=== PATIENT | male | born 2000 | race Caucasian/White ===

== ENCOUNTER 2021-07-28 20:03 | Emergency (ER) | payer OTHER ==
--- NOTE | 2021-07-28 20:36 | ED Physician Documentation ---
History of Present Illness - Stated complaint Stated Complaint: HEADACHE - Chief complaint Chief Complaint: Neuro - Additonal information Additional information: 21-year-old male presents emergency department for evaluation of sudden onset he adache. He was having intercourse this evening when he orgasmed. At the moment of orgasm he developed a sudden posterior occipital headache. He describes it is the worst headache of his life and was 10/10. He did briefly have tunnel vision though no loss of vision. He denies any neck pain nausea or vomiting. No recent fevers. No history of headaches or similar in the past. He does not have a family history of aneurysmal brain defects. Without any treatment the headache has started to subside and is no 5/10.. He presents with no focal deficits. Patient denies any history of injection drug use, history of amphetamine or methamphetamine use. Review of Systems Constitutional: denies: Fever, Chills Eyes: denies: Loss of vision Ears: reports: Reviewed and negative Throat: reports: Reviewed and negative Cardiac: reports: Reviewed and negative Respiratory: reports: Reviewed and negative GI: reports: Reviewed and negative : reports: Reviewed and negative Skin: reports: Reviewed and negative Musculoskeletal: reports: Reviewed and negative Neurologic: reports: Headache. denies: Focal weakness, Numbness, Difficulty speaking, Near syncope, Syncope, Seizure, Confused, Head injury, LOC PD PAST MEDICAL HISTORY - Past Medical History Past Medical History: No - Past Surgical History Past Surgical History: No - Present Medications Home Medications: Ambulatory Orders Medication Instructions Recorded Confirmed No Known Home Medications 07/28/21 07/28/21 - Allergies Allergies/Adverse Reactions: Allergies Allergy/AdvReac Type Severity Reaction Status Date / Time No Known Drug Allergies Allergy Verified 07/28/21 20:07 - Social History Does the pt smoke?: No Smoking Status: Never smoker Does the pt drink ETOH?: No Does the pt have substance abuse?: No PD ED PE NORMAL - General General: Alert and oriented X 3, No acute distress, Well developed/nourished - HEENT HEENT: Atraumatic, Ears normal, Moist mucous membranes, Pharynx benign - Neck Neck: Supple, no meningeal sign, No adenopathy, No JVD - Cardiac Cardiac: RRR, No murmur, No gallop - Respiratory Respiratory: No respiratory distress, Clear bilaterally - Abdomen Abdomen: Normal bowel sounds, Soft, Non tender - Back Back: No CVA TTP, No spinal TTP - Derm Derm: Normal color, Warm and dry, No rash - Extremities Extremities: No deformity, No tenderness to palpate, Normal ROM s pain - Neuro Neuro: Alert and oriented X 3, executive administrative asst 2-12 intact, No motor deficit, No sensory deficit, Normal speech, Other (Normal gait, normal finger-nose normal rapid alternating movements) Eye Opening: Spontaneous Motor: Obeys Commands Verbal: Oriented GCS Score: 15 - Psych Psych: Normal mood, Normal affect Results - Vitals Vitals: Vital Signs - 24 hr 07/28/21 20:07 Temperature 36.5 C Heart Rate 100 Respiratory 16 Rate Blood Pressure 142/56 H O2 Saturation 99 Oxygen O2 Source Room air - Labs Labs: Laboratory Tests 07/28/21 07/28/21 20:35 20:35 PT 12.8 H INR 1.2 Sodium 139 Potassium 4.0 Chloride 101 Carbon Dioxide 27 Anion Gap 11.0 BUN 21 H Creatinine 1.1 Estimated GFR (MDRD) 85 L Glucose 94 Calcium 9.8 Total Bilirubin 0.6 AST 15 ALT 22 Alkaline Phosphatase 55 Total Protein 8.0 Albumin 4.9 Globulin 3.1 Albumin/Globulin Ratio 1.6 Lipase 39 - Rads (name of study) CT head Radiology: Final report received (Normal CT of the brain. No hemorrhage or mass-effect) Procedures - Lumbar Puncture Position: Laying left side PD MEDICAL DECISION MAKING - ED course Complexity details: reviewed results, re-evaluated patient, considered differential, d/w patient ED course: 21-year-old otherwise healthy male presents the emergency department for evaluation of a sudden onset thunderclap worst of headache life. The headache occurred at the moment that he orgasmed during intercourse. No history of similar in the past. He presents with no focal neuro or cerebellar deficits. Screening electrolytes and PT/INR were unremarkable. A CT of the head performed within 2 hours of onset of headache was negative. However given the history I am still concerned that this may represent a subarachnoid hemorrhage. I did attempt lumbar puncture at the bedside 3 times without success therefore I have called our anesthesia colleagues to complete the LP. Patient will be signed out to my nighttime colleague Dr. Fields. If the resultant CSF is negative for findings of blood or xanthochromia he is stable for discharge home and [place] [facility] [place] Departure - Departure Clinical Impression: Headache Qualifiers: Headache type: unspecified Headache chronicity pattern: acute headache Intracta bility: not intractable Qualified Code(s): R51.9 - Headache, unspecified Condition: Stable Record reviewed to determine appropriate education?: Yes Comments: Carter you are seen today in the emergency department for evaluation of a sudden onset headache that occurred at the moment of orgasm during intercourse. The CT of your head was normal. Your screening labs were normal. However your history was concerning for a condition called subarachnoid hemorrhage. Therefore a lumbar puncture was completed at the bedside. Reassuringly this did not show any secondary findings of subarachnoid hemorrhage such as blood in the LP. Is okay for you to take Tylenol and ibuprofen at home for headache and discomfort. If at any point you find that your headache worsens, you have worsening symptoms, fevers neck pain or uncontrolled vomiting then you should return immediately to the ER for a second evaluation.
[2021-07-28 20:51] LABS: INR 1.2 (0.8-1.2); PT - PROTHROMBIN TIME 12.8 secs (9.9-12.6)
[2021-07-28 20:54] LABS: ALBUMIN 4.9 g/dL (3.2-5.5); ALBUMIN/GLOBULIN RATIO 1.6 (1.0-2.2); BILIRUBIN,TOTAL 0.6 mg/dL (0.2-1.0); CALCIUM 9.8 mg/dL (8.5-10.3); CREATININE 1.1 mg/dL (0.6-1.2)
--- NOTE | 2021-07-28 21:15 | CT Report ---
PROCEDURE: CT brain without contrast INDICATIONS: Headache TECHNIQUE: Noncontrast 4.5 mm thick angled axial sections acquired from the foramen magnum to the vertex. For r adiation dose reduction, the following was used: automated exposure control, adjustment of mA and/or kV according to patient size. COMPARISON: None. FINDINGS: Image quality: Excellent. CSF spaces: Basal cisterns are patent. No extra-axial fluid collections. Ventricles are normal in size and shape. Brain: No midline shift. No intracranial masses or hemorrhage. Stone-white matter interface is norm al. Skull and face: Calvarium and visualized facial bones are intact, without suspicious lesions. Sinuses: Visualized sinuses and mastoids are clear. IMPRESSION: Normal CT brain. No hemorrhage or mass effect. Reviewed by: Dwight Briseno MD on 07/28/2021 8:14 PM [email or web address] Approved by: Dwight Briseno MD on 07/28/2021 8:14 PM WIL[facility] Station ID: [id number]
[2021-07-28] MEDS ORDERED: HYDROmorphone 1 MG/ML CARPUJECT IM STA (21:43)
--- NOTE | 2021-07-28 23:12 | ANESTHESIA POST OP EVALUATION ---
Anesthesia Post Eval - Post Anesthesia Eval Vitals: Last Vital Signs Temp 36.5 C 07/28/21 20:07 Pulse 100 07/28/21 20:07 Resp 16 07/28/21 20:07 BP 142/56 H 07/28/21 20:07 Pulse Ox 99 07/28/21 20:07 CV Function Including HR & BP: Stable Pain Control: Satisfactory Nausea & Vomiting: Negative Mental Status: Baseline Respiratory Status: Airway Patent Hydration Status: Satisfactory Anesthesia Complications: None
--- NOTE | 2021-07-28 23:12 | ANESTHESIA ---
Pre-Anesthesia VS, & Labs - Diagnosis WHELAN - Procedure LP Vital Signs: Temp Pulse Resp BP Pulse Ox 36.5 C 100 16 142/56 H 99 07/28/21 20:07 07/28/21 20:07 07/28/21 20:07 07/28/21 20:07 07/28/21 20:07 Height: 5 ft 10 in Weight (kg): 70.3 kg Body Mass Index: 22.2 BMI Classification: Healthy weight - NPO Other (not NPO >8hrs) - Lab Results Current Lab Results: Laboratory Tests 07/28/21 20:35: PT 12.8 H, INR 1.2 07/28/21 20:35: Sodium 139, Potassium 4.0, Chloride 101, Carbon Dioxide 27, Anion Gap 11.0, BUN 21 H, Creatinine 1.1, Estimated GFR (MDRD) 85 L, Glucose 94, Calcium 9.8, Total Bilirubin 0.6, AST 15, ALT 22, Alkaline Phosphatase 55, Total Protein 8.0, Albumin 4.9, Globulin 3.1, Albumin/Globulin Ratio 1.6, Lipase 39 Fish Bones: 07/28/21 20:35 Home Medications and Allergies Home Medications: Ambulatory Orders No Known Home Medications 07/28/21 No Known Home Medications 07/28/21 Allergies/Adverse Reactions: Allergies Allergy/AdvReac Type Severity Reaction Status Date / Time No Known Drug Allergies Allergy Verified 07/28/21 20:07 Anes History & Medical History - Anesthetic History Anesthesia Complications: reports: No previous complications Family history of Anesthesia Complications: Denies Family history of Malignant Hyperthermia: Denies - Medical History Cardiovascular: reports: None Pulmonary: reports: None Smoking Status: Never smoker Exam General: Alert, Oriented x3, Cooperative Dental: WNL Mouth Openin Fingerbreadth Neck Mobility: Normal Mallampati classification: I Thyromental Distance: 4-6 cm Respiratory: Lungs clear Cardiovascular: Regular rate Plan Anesthesia Type: MAC, Other Consent for Procedure(s) Verified and Reviewed: Yes Code Status: Attempt Resuscitation ASA classification: 1-Healthy patient Is this case an emergency?: Yes
--- NOTE | 2021-07-28 23:13 | CONSULTATION NOTE ---
Consultation Report: consulted by ED provider for LP at the bedside. See Anesthesia record for note. VSS.
[2021-07-28 23:20] LABS: CLARITY,CSF CLEAR (CLEAR); COLOR,CSF COLORLESS (COLORLESS); CSF TUBE # CSF TUBE# 3; CSF XANTHOCHROMIA ABSENT (ABSENT); RED BLOOD CELL,CSF 0 /mm^3 (0-1); WHITE BLOOD CELL,CSF 0 /mm^3 (0-10)
[2021-07-28 23:24] LABS: CSF - GLUCOSE 56 mg/dL (45-70); TOTAL PROTEIN,CSF 27 mg/dL (15-45)
[2021-07-28 23:39] VITALS: BP 123/63
== END 2021-07-28 23:42 | disposition home or self-care (01) ==
LOC: ED 20:03
DX: R51.9 Headache, unspecified (principal)
CPT/HCPCS: 36415; 62270; 70450; 80053; 82945; 83690; 84157; 85610; 87070; 87205; 89051; 96372; 99282; 99284; J1170